=== PATIENT | female | born 1950 | race Caucasian/White ===

== ENCOUNTER → 2016-10-24 | Outpatient (CLI) | payer OTHER | END | disposition home or self-care (01) | LOC: HKI 10:31 | PROVIDERS: ATTEND Orthopaedic Surgery | DX: M25.551 Pain in right hip (principal); M16.11 Unilateral primary osteoarthritis, right hip ==

== ENCOUNTER → 2016-11-17 | Outpatient (CLI) | payer OTHER ==
--- NOTE | 2016-11-18 05:54 | HKNOTE ---
DATE OF SERVICE: 11/17/2016 MAIN COMPLAINT: Pain in the right hip. HISTORY OF MAIN COMPLAINT: Patient is a 66-year-old female who complains of pain in her right hip, which has been present for several years. The pain is in the groin and also over the trochanter. The pain radiates down the anterior thigh, at times to just above the knee. She can walk about a block before she has to stop because of the pain. Patient had a "gel" injection 6 months ago. This gave her relief for a few days. She saw Dr. Charles Stevens at the [facility] [place]. He advised her that she needed a hip replacement but the surgery was canceled when he stopped working at the [facility]. She subsequently saw Dr. George, who agreed with the findings and indicated a hip replacement is required. Dr. George is moving to [place] at the end of the month and the patient does not want to have her surgery so far away from home. She has tried various anti-inflammatories including diclofenac. These did not help very much. She describes the pain as being severe and is aggravated by walking, stair climbing. She sometimes get rest pain and night pain. She has tried using mineral ice and Aleve. She does not have any back pain or history of back problems. On a flat level surgeon, she walk "around the clock." She does not use a walking aid. She does work out using a stationary bike leaning backwards and she can also do the elliptical outdoor fitness trainer. She limps all the time. PRIOR CORTISONE INTAKE: None. ALCOHOL INTAKE: Eight glasses of wine a day. OTHER JOINT PROBLEMS: The left hip. BLOOD TESTS FOR ARTHRITIS: "I do not know." PRIOR INJURIES TO HIPS AND KNEES: None. 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 PAST MEDICAL HISTORY: Negative. PAST SURGICAL HISTORY: Negative. MEDICATIONS: Turmeric 740 mg every other day. Boswellia 500 mg every other day. SYSTEMS REVIEW: Entirely negative. HABITS: The patient does not smoke. She drinks a glass of wine daily. RESEARCH LABORATORY TECHNICIAN: Dr. Leland Ordaz, [address] [place] [address]. PHYSICAL EXAMINATION: GENERAL: The patient is an incredibly youthful 66-year-old female. She comes in with her . VITAL SIGNS: Height 5 foot 5. Weight 130 pounds. Blood pressure 145/70, temperature 98.4. GAIT: The patient has a marked antalgic gait. She walks without a walking aid. HIPS: Right hip examination: A full range of motion except that external rotation is limited to 35 degrees. Marked pain in the right groin at limits of motion. Examination of the left hip: Minimal pain at the limits of motion, but external rotation is limited to 30 degrees. No pain. KNEES: Normal bilaterally. IMAGING: Plain x-rays of her pelvis and hips brought with her (recent) were reviewed, as well as the x-rays obtained at the [facility] [place]. Imaging brought on a disk from the [facility] [place] dated 07/29/2016, showed that the right hip shows severe osteoarthritis with complete joint space obliteration and [id number] contact. Subchondral sclerosis, peripheral osteophyte formation. The left hip seen on these images shows mild joint space narrowing. No osteonecrosis, no fractures. DIAGNOSES: Severe degenerative osteoarthritis of the right hip (symptomatic). Moderate degenerative osteoarthritis of the left hip and (nonsymptomatic). MANAGEMENT: Patient is advised that I certainly agree with the 2 previous doctors who saw her that she will need to have a hip replacement operation. The surgery and some of the major possible complications were discussed with her and her in a fair amount of detail. 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 Straight leg raising bilaterally is to 105 degrees. All other joints appear to be hyperflexible. The patient is advised that this could present a problem with the surgery because someone with this degree of flexibility could easily dislocate the hip postoperatively. She was given information about the restrictions that this will place on her because if the hip dislocates she will have a very bad set back. Patient would like to schedule her hip surgery for the near future. She was referred to my website, [employer]. She was given a copy of my booklet on hip arthritis and hip replacement surgery. Dictated By: Alek Peres MD /[email or web address]/kaylee /Document#: [id number]
== END | disposition home or self-care (01) ==
LOC: HKI 15:21
DX: M25.551 Pain in right hip (principal); M16.0 Bilateral primary osteoarthritis of hip
CPT/HCPCS: G0463

== ENCOUNTER → 2016-12-06 | Outpatient (CLI) | payer OTHER ==
--- NOTE | 2017-01-11 04:10 | HKNOTE ---
DATE OF SERVICE: 12/06/2016 MAIN COMPLAINT: The patient comes in for preoperative evaluation. She is scheduled to have a right hip replacement on 12/08/2016. She has been cleared for surgery by Dr. Ordaz. Numerous questions were asked and answered. The postoperative course was discussed with her. She has not given any blood for a transfusion. She understands the risks associated with using hospital blood. She is agreeable to using hospital blood if needed. Dictated By: Alek Peres MD /[email or web address]/deanna /Document#: [id number]
== END | disposition home or self-care (01) ==
LOC: HKI 13:32
DX: Z01.818 Encounter for other preprocedural examination (principal)
CPT/HCPCS: G0463

== ENCOUNTER 2016-12-07 05:44 | Day surgery (SDC) | payer OTHER ==
[2016-12-06 11:52] VITALS: BMI 21.6
[~2016-12-07] VITALS: Ht 165.1 cm; Wt 59.7 kg
[2016-12-07 05:47] VITALS: Ht 165.1 cm; Wt 59.7 kg
[2016-12-07 05:54] VITALS: BP 141/74; PULSE 58; RESP 18
[2016-12-07] MEDS ORDERED: DEXAMETHASONE 4 MG/ML 1 ML INJ IV ONE (06:00)
[2016-12-07] MEDS ORDERED: LACTATED RINGER'S 1,000 ML IV* SCH (06:00)
[2016-12-07] MEDS ORDERED: TRANEXAMIC ACID IVPB ONE (06:00)
[2016-12-07] MEDS ORDERED: LANSOPRAZOLE 30 MG CAP PO ONE (06:00)
[2016-12-07] MEDS ORDERED: CELECOXIB 200 MG CAP PO ONE (06:00)
[2016-12-07] MEDS ORDERED: SOD CHLORIDE 0.9% IVPB ONE (06:00)
[2016-12-07] MEDS ORDERED: ACETAMINOPHEN 1000MG/100ML IV 100 ML IVPB ONE (06:00)
[2016-12-07] MEDS ORDERED: VANCOMYCIN 1 GM (PMX) 250 ML IVPB ONE (06:00)
[2016-12-07] MEDS ORDERED: oxyCODONE (CR) 10 MG TAB [oxyCONTIN] PO ONE (06:00)
[2016-12-07] MEDS ORDERED: ONDANSETRON 4 MG INJ IV ONE (06:00)
[2016-12-07] MEDS ORDERED: SOD CHLORIDE 0.9% IRR SCH ×2 (07:30)
[2016-12-07] MEDS ORDERED: HIP PAIN COCKTAIL VANCO INJ SCH ×7 (07:30)
[2016-12-07] MEDS ORDERED: TRANEXAMIC ACID IRR SCH ×2 (07:30)
== END 2016-12-07 06:37 | disposition home or self-care (01) ==
LOC: REC 05:44 → UNDOADMIN 05:44 → SDS 05:44 → UNDODISIN 06:37 → SDS 06:37 → EDSTATUS 07:30
DX: M16.11 Unilateral primary osteoarthritis, right hip (principal); Z53.9 Procedure and treatment not carried out, unspecified reason
CPT/HCPCS: 86850; 86900; 86901; 86920; J0131; J0171; J0735; J1100; J1885; J2274; J2405; J2795; J3370; J7120

== ENCOUNTER 2016-12-20 05:33 | Inpatient (IN) | payer OTHER ==
[~2016-12-20] VITALS: Ht 165.1 cm; Wt 59.2 kg
[2016-12-20] VITALS (21 sets, daily range): BP systolic 94–149; BP diastolic 20–66; PULSE 46–72; RESP 12–20; Ht 165.1 cm; Wt 59.2 kg
[2016-12-20] MEDS: HIP PAIN COCKTAIL VANCO INJ SCH ×14 (05:30→08:51)
[2016-12-20] MEDS ORDERED: TRANEXAMIC ACID IVPB ONE (06:00)
[2016-12-20] MEDS ORDERED: CELECOXIB 200 MG CAP PO ONE (06:00)
[2016-12-20] MEDS ORDERED: ONDANSETRON 4 MG INJ IV ONE (06:00)
[2016-12-20] MEDS ORDERED: DEXAMETHASONE 4 MG/ML 1 ML INJ IV ONE (06:00)
[2016-12-20] MEDS ORDERED: oxyCODONE (CR) 10 MG TAB [oxyCONTIN] PO ONE (06:00)
[2016-12-20] MEDS ORDERED: SOD CHLORIDE 0.9% IVPB ONE (06:00)
[2016-12-20] MEDS ORDERED: ACETAMINOPHEN 1000MG/100ML IV 100 ML IVPB ONE (06:00)
[2016-12-20] MEDS ORDERED: LANSOPRAZOLE 30 MG CAP PO ONE (06:00)
[2016-12-20] MEDS ORDERED: SOD CHLORIDE 0.9% IRR SCH ×2 (06:00)
[2016-12-20] MEDS ORDERED: VANCOMYCIN 1 GM (PMX) 250 ML IVPB ONE (06:00)
[2016-12-20] MEDS ORDERED: TRANEXAMIC ACID IRR SCH ×2 (06:00)
[2016-12-20] MEDS ORDERED: LACTATED RINGER'S 1,000 ML IV* SCH (06:00)
[2016-12-20] MEDS ORDERED: LABETALOL HCL 20MG INJ IV PRN (06:30)
[2016-12-20] MEDS ORDERED: OXYCODONE/ACETAMINOPHEN (5/325) TAB PO PRN ×2 (06:30)
[2016-12-20] MEDS ORDERED: morphine (1 MG/ML) 10ML SYRINGE IV PRN ×3 (06:30)
[2016-12-20] MEDS ORDERED: HYDROmorphONE (0.2 MG/ML) 10ML SYG IV PRN ×3 (06:30)
[2016-12-20] MEDS ORDERED: hydrALAzine 20 MG INJ IV PRN (06:30)
[2016-12-20] MEDS ORDERED: MIDAZOLAM 1 MG/ML 2 ML INJ IV PRN (06:30)
[2016-12-20] MEDS ORDERED: ONDANSETRON 4 MG INJ IV PRN (06:30)
[2016-12-20] MEDS ORDERED: MEPERIDINE 25 MG INJ IV PRN (06:30)
[2016-12-20] MEDS ORDERED: EPHEDrine SULFATE 50 MG/5 ML SYG IV PRN (06:30)
[2016-12-20] MEDS ORDERED: ATROPINE 1 MG/10 ML SYRINGE IV PRN (06:30)
[2016-12-20] MEDS ORDERED: FENTAnyl 50 MCG/ML VIAL IV PRN ×2 (06:30)
[2016-12-20] MEDS ORDERED: DIPHENHYDRAMINE 50 MG INJ IV PRN (06:30)
[2016-12-20] MEDS ORDERED: LIDOCAINE 2% (SDV) 5 ML INJ ONE (06:31)
[2016-12-20] MEDS ORDERED: ROCURONIUM 50 MG INJ ONE (06:31)
[2016-12-20] MEDS ORDERED: PROPOFOL 20 ML ONE (06:31)
[2016-12-20] MEDS ORDERED: FENTAnyl 50 MCG/ML VIAL ONE (06:31)
[2016-12-20] MEDS ORDERED: NEOSTIGMINE 3 MG/3 ML SYRINGE ONE (06:31)
[2016-12-20] MEDS ORDERED: MIDAZOLAM 1 MG/ML 2 ML INJ ONE (06:31)
[2016-12-20] MEDS ORDERED: GLYCOPYRROLATE 0.4 MG INJ ONE (06:31)
[2016-12-20] MEDS ORDERED: DEXAMETHASONE 4 MG/ML 1 ML INJ ONE (06:32)
[2016-12-20] MEDS ORDERED: LIDOCAINE 2%/EPI 30 ML INJ ONE (06:32)
[2016-12-20] MEDS ORDERED: ONDANSETRON 4 MG INJ ONE (06:43)
--- NOTE | 2016-12-20 06:48 | HPN ---
Date/Time of Note Date/Time of Note DATE: 12/20/16 TIME: 06:47 Interval H&P Admission Note Pt. seen H&P reviewed: No system changes NUPUR SIERRA PA-C Dec 20, 2016 06:48
[2016-12-20] MEDS ORDERED: VANCOMYCIN 1 GM INJ ONE (06:54)
[2016-12-20] MEDS ORDERED: POLYMYXIN B 500000 UNIT INJ ONE (06:54)
[2016-12-20] MEDS ORDERED: ROPIVACAINE 0.2% 100 ML ONE (06:55)
[2016-12-20] MEDS ORDERED: GELATIN SIZE 100 SPONGE ONE (07:01)
[2016-12-20] MEDS ORDERED: HEPARIN 1000 UNITS/ML 10 ML INJ ONE (07:01)
[2016-12-20] MEDS ORDERED: hydrALAzine 20 MG INJ ONE (07:50)
[2016-12-20] MEDS ORDERED: SUGAMMADEX SODIUM 200 MG/2 ML VIAL IV ONE (08:48)
[2016-12-20] MEDS ORDERED: BACITRACIN 50000 UNITS INJ IRR ONE (08:50)
[2016-12-20] MEDS ORDERED: ROPIVACAINE 0.2% 100ML BAG INJ ONE (08:51)
[2016-12-20] MEDS ORDERED: PROPOFOL 100 ML ONE (09:42)
--- NOTE | 2016-12-20 11:49 | PDOCDIS ---
Discharge Instructions DIAGNOSIS Discharge Diagnosis Status post right total hip arthroplasty via anterior route CONDITION Patient Condition: Stable HOME CARE INSTRUCTIONS: Diet Instructions: Regular ACTIVITY: Activity Restrictions: Slowly Increase Activity Rest between Activity Avoid heavy lifting No Sexual Activity Do not Drive Do not operate Machinery Do not operate Power Tool Avoid Heavy Housework Keep Limb Elevated (With ice modalities at rest.) Weight Bearing (Using front wheeled walker) Bathing Restrictions: Shower (Applied Tegaderm with pad prior to shower. After shower make sure the area is dry before removing. Repeat the steps each day until erika are removed 10 days postoperatively.) FOLLOW UP/APPOINTMENTS Follow-up Plan 01/10/2017 at 10:15 AM. NUPUR SIERRA PA-C Dec 20, 2016 11:49
--- NOTE | 2016-12-20 11:53 | SIPON ---
Date/Time of Note Date/Time of Note DATE: 12/20/16 TIME: 11:50 Operative Report Preoperative Diagnosis Severe degen right hip Postoperative Diagnosis same Operation/Procedure Performed Right THR Surgeon: VALDEZ APONTE MD physician assistant surgery: NUPUR SIERRA PA-C Anesthesia Type: general, epidural Transfusion Required: no Specimens Bone Complications: no VALDEZ APONTE MD Dec 20, 2016 11:52
[2016-12-20] MEDS ORDERED: NALOXONE (0.4 MG/ML) INJ IV PRN (12:00)
[2016-12-20] MEDS ORDERED: MAGNESIUM HYDROXIDE 30ML CUP PO PRN (12:00)
[2016-12-20] MEDS ORDERED: oxyCODONE 5 MG TAB PO PRN ×2 (12:00)
[2016-12-20] MEDS ORDERED: DIPHENHYDRAMINE 50 MG INJ IM PRN (12:00)
[2016-12-20] MEDS ORDERED: ZOLPIDEM 5 MG TAB PO PRN (12:00)
[2016-12-20] MEDS ORDERED: NA PHOSPHATE/BIPHOS 133 ML ENEMA PR PRN (12:00)
[2016-12-20] MEDS ORDERED: BISACODYL 10 MG SUPP PR PRN (12:00)
[2016-12-20] MEDS ORDERED: HYDROmorphONE 0.2 MG/ML PCA IV PRN (12:00)
[2016-12-20] MEDS ORDERED: ASPIRIN (EC) 325 MG TAB PO ONE (12:00)
[2016-12-20] MEDS ORDERED: BETHANECHOL 25 MG TAB PO PRN (12:00)
[2016-12-20] MEDS ORDERED: MEPERIDINE 10 MG/ML 30 ML PCA IV PRN (12:00)
[2016-12-20] MEDS ORDERED: SENNA/DOCUSATE NA (8.6MG/50MG) TAB PO PRN (12:00)
[2016-12-20] MEDS ORDERED: DOCUSATE SODIUM 100 MG CAP PO ONE ×2 (12:00→12:16)
[2016-12-20] MEDS ORDERED: NACL 0.9% 3 ML SYG IV SCH (12:00)
[2016-12-20] MEDS: ACETAMINOPHEN 1000MG/100ML IV 100 ML IVPB SCH ×2 (12:20→20:05)
[2016-12-20] MEDS: CEFAZOLIN 1 GM/50 ML (PMX) 50 ML IVPB SCH ×2 (12:20→20:31)
[2016-12-20] MEDS: ONDANSETRON 4 MG INJ IV SCH ×2 (12:21→17:06)
[2016-12-20] MEDS: DEXTROSE 5%-LR 1,000 ML IV SCH (12:48)
--- NOTE | 2016-12-20 13:38 | RADRPT ---
PROCEDURE: Right hip series CLINICAL INDICATION: Right hip arthroplasty TECHNIQUE: Single AP view of the right hip is submitted COMPARISON: None FINDINGS: There has been recent right hip arthroplasty with anatomic alignment. No evidence of fractures or d islocation.. Postsurgical changes with skin erika, soft tissue drain and soft tissue gas are prese nt. Visualized portions of the pelvis are intact. IMPRESSION: Recent right hip arthroplasty. RPTAT: HJPL .Jeyson Storey MD, MD Date Time Electronically viewed and signed by .Jeyson Storey MD, on 12/20/2016 13:38 .L/
--- NOTE | 2016-12-20 13:39 | RADRPT ---
PROCEDURE: Fluoroscopy CLINICAL INDICATION: Right hip arthroplasty TECHNIQUE: 0.9 minutes fluoroscopic time utilized by Dr. Peres for procedure. 5 images/sequences of are submitted. COMPARISON: None FINDINGS: Right hip arthroplasty in progress is demonstrated. IMPRESSION: Fluoroscopy utilized by Dr. Peres for right hip arthroplasty Please see procedural report for complete details. RPTAT: HJPL .Jeyson Storey MD, Date Time Electronically viewed and signed by .Jeyson Storey MD, on 12/20/2016 13:38 .L/
--- NOTE | 2016-12-20 14:29 | OPR ---
DATE OF OPERATION: 12/20/2016 PREOPERATIVE DIAGNOSIS: Severe degenerative osteoarthritis of the right hip. POSTOPERATIVE DIAGNOSIS: Severe degenerative osteoarthritis of the right hip. OPERATION PERFORMED: Right total hip replacement by the anterior route. Computer-assisted surgery using the [employer] digital imaging computer. FINDINGS AT SURGERY: The patient was found to have exceedingly severe degenerative osteoarthritis of the right hip. The socket is very shallow. The femoral head had no normal-appearing articular cartilage. The patient's bone quality was soft for a female of her age. JUSTIFICATION FOR SURGERY: Patient has end stage osteoarthritis of the right hip. There can be no scientific expectation that any further conservative measures would give this patient any relief from her incapacitating pain. DESCRIPTION OF PROCEDURE: The patient was given intravenous antibiotics approximately 1 hour prior to surgery. An epidural anesthetic was initiated in the preanesthesia area. The patient was then moved to the operating room and transferred to a Manor table. General anesthesia was induced with intubation and full muscle paralysis. Plain and digital x-rays were obtained of the pelvis and the operative hip and stored in the computer. Measurements were made on the operative hip to determine the degree of leg length and offset. The intent was to use the operative hip as the basic template for restoring the geometry of the operative hip (i.e., the opposite hip was not used as the template). On the pelvic x-ray, the correct orientation of the pelvis for surgery was determined. Note that the [employer] computer was used throughout for making all leg length and angular measurements. The operative thigh, leg and lower abdomen were prepared and draped in the usual sterile fashion. An oblique incision was made over the lateral aspect of the right thigh. Incision commenced 3 cm distal and 3 cm posterior to the anterior superior iliac spine. The total length of the incision was approximately 100 mm. The incision was deepened through the subcutaneous fat to expose the fascia over the tensor muscle. The fascia was opened to expose the muscle. Bleeding points were cauterized throughout by diathermic coagulation. The fascia over the tensor was incised by blunt and digital resection. The interval was found between the tensor muscle and the anterior capsule as well as the rectus muscle. Superior and inferior cobra retractors were now placed outside the capsule to expose the anterior surface of the capsule. A third cobra retractor was placed over the brim of the pelvis. The reflected head of rectus was first elevated with a Licona elevator. The anterior capsule was incised along the length of the intratrochanteric line with the hip externally rotated. The incision extended around the proximal femur to the lesser trochanter. The incision was now extended vertically to the edge of the acetabulum. The capsular incision was extended along the anteromedial extent of the anterior rim of the acetabulum. A cobra retractor was placed inside the capsule medially. The lateral aspect of the anterior capsule was incised and a second cobra retractor was placed inside the capsule around the superior femoral neck. Three turns of traction were placed on the operative leg. The femoral head was now freed from the acetabulum using a skid. The remaining superior and anterior capsule was incised and the femoral neck was then incised. A corkscrew was inserted into the femoral head from the anterior aspect of the femoral head. Using the corkscrew as a handle and using a skid, the hip was now completely dislocated. The hip was reduced. An osteotomy of the femoral neck was made at the location determined by preoperative templating. The femoral head was now removed. By suitable retraction, the acetabulum was exposed. Soft tissues around the folia removed. The acetabulum was enlarged and deepened to 51 mm. The last acetabular reamings were inserted under fluoroscopic control and the correct orientation of the socket and if the reaming were determined by the [employer] computer and direct x-ray visualization. The acetabular component was now installed with an orientation of 45 degrees of abduction and 20 degrees of anteversion. The [employer] computer was used for making these measurements. Note: We intended to an abduction angle of 40 to 43 degrees but by the time we were done and had a screw inserted into the acetabulum the angle had changed slightly. For this reason a socket with a 10 degree lip set superiorly to offset the high angle. The proximal femur was now exposed by hyperextending and adducting the hip joint. A retractor was placed posterior to the femoral neck so as to retract the proximal femur laterally. A hook was then placed around the proximal femur deep to the tensor muscle and as proximal as possible. The hook was attached to the table dagoberto and the femur was elevated as high as we could go without force being applied to the femur. The superior and proximal femoral capsules were now incised. The cobra retractor was placed behind the posterior rim of the acetabulum. A Steinmann pin was driven into the pelvis superior to the acetabulum to retract the soft tissues. A third cobra was placed over the rim of the acetabulum and the fourth cobra was placed along the medial aspect of the acetabulum. This allowed further mobilization of the proximal femur. A canal finder was used to find the canal. The proximal femur is now broached starting with the smallest broach and progressively increasing until we felt we could go no further. At this point, the size 11 broach was left in place and the hip was reduced. X-rays were taken and these x-rays showed that we could broach up 1 more size. The hip was reduced with the shortest femoral head and neck assembly and measurements were made to determine what neck lengths and offset changes were still needed. The hip was dislocated. The next size broach 12 was now installed. This broach was found to be completely stable. The hip was reduced using the plus 5 mm femoral head and neck assembly and the broach. Measurements indicated that the leg lengths had been increased by 2 mm. The offset was unchanged. This was felt to be an appropriate combination. The trial components were placed and the retractor was placed anterior to the acetabulum and the hip was hyperextended using the Manor table until the spar touched the floor. This showed that the hip was totally stable in the anterior aspect of the socket. The leg was not detached from the Manor table and the knee was put through a full functional range of motion and found to be stable with a full functional range. As trial components were removed, the permanent plastic acetabular component was installed. This was followed by installing the permanent femoral component. The table was now returned to a neutral position and the hip was dislocated. The wound was frequently irrigated throughout the procedure with normal saline containing antibiotics using pulsatile lavage. The permanent femoral component was installed, it fit perfectly and appeared to be completely stable. The permanent femoral head was installed and the hip was reduced. Superficial and deep Hemovac drains were placed. Soft tissues around the hip were injected with a mixture of Naropin, Toradol, morphine and clonidine for pain management. The deep tissues were now closed using interrupted Vicryl. The subcutaneous tissues were closed using a Quill type stitch. The skin was closed using erika. The usual sterile dressings were applied and an abduction pillow was placed between the patient's legs before transferring her to a gurney. The patient returned to the recovery room in stable condition. There were no problems or complications throughout this operation as far as is known. Although multiple x-rays were taken in the operating room and saved, the permanent x-ray record was obtained in the recovery room to be sure that the hip did not dislocate in transfer. IMPLANT COMPONENT INFORMATION: Femoral component: Corail ESSENCE size 12. Acetabular component: Size 52 mm [place] with Gription with a single screw set superiorly. Femoral head size: 36 mm. Femoral neck size: Plus 5 mm. 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 Leg length: Increased 2 mm. Offset: Unchanged. Acetabular liner: Plus 4 mm liner with 10 degree lip set superiorly. Reinfusion was used. The total blood loss was approximately 400 mL and more 150 cc were recovered and reinfused as packed cells. Dictated By: Alek Peres MD /kelvin/efra /Document#: [id number]
[2016-12-20] MEDS ORDERED: CEPASTAT LOZENGE MT PRN (15:00)
[2016-12-20] MEDS ORDERED: TRANEXAMIC ACID 590 MG in SOD CHLORIDE 0.9% 100 ML IVPB ONE ×2 (15:00→18:00)
[2016-12-20 19:39] LABS: ADD UMIC NO; UR ASCORBIC ACID NEGATIVE (NEGATIVE); UR BILIRUBIN (Dip) NEGATIVE (NEGATIVE); UR BLOOD (Dip) NEGATIVE (NEGATIVE); UR CLARITY CLEAR (CLEAR); UR COLOR STRAW (YELLOW); UR GLUCOSE (Dip) NEGATIVE (NEGATIVE); UR KETONES (Dip) NEGATIVE (NEGATIVE); UR LEUKOCYTE ESTERASE (Dip) NEGATIVE Leu/ul (NEGATIVE); UR NITRITE (Dip) NEGATIVE (NEGATIVE); UR SPECIFIC GRAVITY (Dip) 1.012 (1.003-1.030); UR TOTAL PROTEIN (Dip) NEGATIVE (NEGATIVE); UR UROBILINOGEN (Dip) NEGATIVE (NEGATIVE)
[2016-12-21] MEDS: oxyCODONE 5 MG TAB PO PRN ×3 (01:02→21:59)
[2016-12-21] MEDS: ONDANSETRON 4 MG INJ IV SCH ×2 (01:02→06:00)
[2016-12-21] MEDS: DEXTROSE 5%-LR 1,000 ML IV SCH ×2 (01:03→12:49)
[2016-12-21 02:05] VITALS: BP 107/52; RESP 18
[2016-12-21] MEDS: CEFAZOLIN 1 GM/50 ML (PMX) 50 ML IVPB SCH (03:55)
[2016-12-21] MEDS: ACETAMINOPHEN 1000MG/100ML IV 100 ML IVPB SCH ×3 (04:44→20:09)
[2016-12-21 05:30] VITALS: BP 119/57; PULSE 55; RESP 18
--- NOTE | 2016-12-21 05:39 | CONS ---
Date/Time of Note Date/Time of Note DATE: 12/21/16 TIME: 05:33 Assessment/Plan Assessment/Plan Additional Assessment/Plan ASSESSMENT 66 yo male with hx of Severe degenerative osteoarthritis of the right hip s/p Right total hip replacement. PLAN Cont pain mgmt with adjustment as needed Check am lab. will include TSH given bradycardia in low 50s Check EKG DVT ppx per Ortho Consultation Date/Type/Reason Admit Date/Time Dec 20, 2016 at 05:33 Hx of Present Illness This is a 66 yo male with hx of Severe degenerative osteoarthritis of the right hip who just underwent Right total hip replacement. Consult was placed for medical mgmt. Patient denied PMH. Currently, he is feeling well. Except intermittent pain related to surgery, he does not have any complaints. Denied Chest pain, SOB, fever/chills. Social History Smoking Status: Never smoker Exam/Review of Systems Vital Signs Vitals Vital Signs Date Time Temp Pulse Resp B/P Pulse Ox O2 Delivery O2 Flow Rate FiO2 12/21/16 02:05 97.6 51 18 107/52 99 12/20/16 16:15 Room Air Intake and Output 12/20/16 12/20/16 12/21/16 15:00 23:00 07:00 Intake Total 3300 ml 1521.8 ml 590 ml Output Total 640 ml 1400 ml Balance 2660 ml 121.8 ml 590 ml Exam Constitutional: alert, oriented, well developed Head: atraumatic, normocephalic Eyes: EOMI, PERRL Respiratory: clear to auscultation, normal air movement Cardiovascular: nl pulses, regular rate and rhythm Gastrointestinal: non-tender, soft Extremities: other (right lower ext covered) Results Results 24 hrs Laboratory Tests Test 12/20/16 18:10 Urine Color STRAW Urine Clarity CLEAR Urine pH 6.0 Urine Specific [place] 1.012 Urine Ketones NEGATIVE Urine Nitrite NEGATIVE Urine Bilirubin NEGATIVE Urine Urobilinogen NEGATIVE Urine Leukocyte Esterase NEGATIVE Urine Hemoglobin NEGATIVE Urine Glucose NEGATIVE Urine Total Protein NEGATIVE Medications Medications Current Medications Sodium Chloride 50 ml/Tranexamic Acid 1180 mg INTRA-OP IRR ; Start 12/20/16 at 06:00 Dextrose/Lactated Ringer's (D5-Lr) 1,000 ml @ 80 mls/hr [id number] IV Last administered on 12/21/16t 01:03; Admin Dose 80 MLS/HR; Start 12/20/16 at 11:49 Hydromorphone HCl (Dilaudid GEOLOGICAL SURVEY FIELD ASSISTANT) Q4PCA PRN IV SEVERE PAIN 8-10; Start at 12:00; Stop 12/21/16 at 11:59 Meperidine HCl (Demerol GEOLOGICAL SURVEY FIELD ASSISTANT) Q4PCA PRN IV SEVERE PAIN 8-10; Start 12/20/16 at 12:00; Stop 12/21/16 at 11:59 Oxycodone HCl (Roxicodone) 20 mg Q3H PRN PO PAIN LEVEL 8-10; Start 12/20/16 at 12:00 Oxycodone HCl (Roxicodone) 10 mg Q3H PRN PO PAIN LEVEL 4-7; Start 12/20/16 at 12:00 Oxycodone HCl 5 mg 5 mg Q3H PRN PO PAIN LEVEL 1-3 Last administered on 01:02; Admin Dose 5 MG; Start 12/20/16 at 12:00 Acetaminophen (Ofirmev 1000mg/ 100ml Iv) 100 ml @ 400 mls/hr Q8H IVPB Last administered on 12/21/16 04:44; Admin Dose 400 MLS/HR; Start 12/20/16 at 12:00 ; Stop 12/22/16 at 04:14 Zolpidem Tartrate (Ambien) 5 mg HS PRN PO INSOMNIA; Start 12/20/16 at 12:00 Ondansetron HCl (Zofran Inj) 4 mg Q6H IV Last administered on 12/21/16 01:02; Admin Dose 4 MG; Start 12/20/16 at 12:00; Stop 12/21/16 at 06:01 Aspirin (Ecotrin) 325 mg BID PO ; Start 12/21/16 at 09:00 Celecoxib (Celebrex) 200 mg BID PO ; Start 12/21/16 at 09:00 Dexamethasone (Decadron) 4 mg DAILY@07 IV ; Start 12/21/16 at 07:00; Stop at 06:59 Pantoprazole (Protonix Tab) 40 mg DAILY@06 PO ; Start 12/21/16 at 06:00 Docusate Sodium/ Ferrous Fumarate (Parish-Sequels) 1 tab BID PO ; Start 12/21/16 at 09:00 Docusate Sodium (Colace) 200 mg BID PO ; Start 12/21/16 at 09:00; Stop 12/23/16 at 21:01 Simethicone (Mylicon) 80 mg TID PRN PO DISTENSION/GAS/BLOATING; Start 12/20/16 at 12:00 Senna/Docusate Sodium (Senokot-S) 2 tab BID PRN PO CONSTIPATION; Start at 12:00 Magnesium Hydroxide (Milk Of Mag) 30 ml HS PRN PO CONSTIPATION; Start 12/20/16 at 12:00 Bisacodyl (Dulcolax Supp) 10 mg DAILY PRN [place] CONSTIPATION; Start 12/20/16 at 12 :00 Sodium Biphosphate/ Sodium Phosphate (Fleet Enema) 133 ml DAILY PRN [place] CONSTIPATION; Start 12/20/16 at 12:00 Diphenhydramine HCl (Benadryl) 25 mg Q4H PRN IM ITCHING OR RASH; Start at 12:00 Ketorolac Tromethamine (Toradol) 15 mg DAILY@06 PRN INJ ADMINSTER BY SURGEON ONLY; Start 12/21/16 at 06:00; Stop 12/25/16 at 05:59 Bupivacaine HCl/ Epinephrine Bitart (Marcaine 0.25%/ Epi (Sdv) 30 ml) 20 ml DAILY@06 PRN INJ ADMINSTER BY SURGEON ONLY; Start 12/21/16 at 06:00; Stop 12/25 at 05:59 Naloxone HCl (Narcan) 0.2 mg Q2M PRN IV DECREASED REPIRATORY RATE; Start at 12:00 Phenol (Cepastat Lozenge) 1 lozenge Q1H PRN MT SORE THROAT Last administered on 12/20/16t 17:06; Admin Dose 1 LOZENGE; Start 12/20/16 at 15:00 MANUEL LOPEZ MD Dec 21, 2016 05:39
[2016-12-21] MEDS ORDERED: BUPIVACAINE 0.25%/EPI (SDV) 30 ML INJ INJ PRN (06:00)
[2016-12-21] MEDS ORDERED: KETOROLAC 15 MG INJ INJ PRN (06:00)
[2016-12-21] MEDS: DEXAMETHASONE 4 MG/ML 1 ML INJ IV SCH (06:15)
[2016-12-21] MEDS: PANTOPRAZOLE (EC) 40 MG TAB PO SCH (06:15)
[2016-12-21] MEDS ORDERED: BUPIVACAINE 0.25% (MPF) 30 ML INJ INJ ONE (07:10)
--- NOTE | 2016-12-21 07:18 | PN ---
Date/Time of Note Date/Time of Note DATE: 12/21/16 TIME: 07:16 Assessment/Plan VTE Prophylaxis VTE Prophylaxis Intervention: ambulation, SCD's, other (Aspirin 325 mg twice daily) Lines/Catheters IV Catheter Type (from Nrs): Peripheral IV Piedra in Place (from Nrsg): No Assessment/Plan Assessment/Plan -Hemovac Removed Today. 440 cc output -Pain Meds as needed -Dress change performed today -OOB with PT -ASA/SCDs for DVT Prophylaxis -Continue monitoring with Internal Medicine -Patient Stable Subjective 24 Hr Interval Summary 66-year-old female postop day 1 status post right total hip arthroplasty via anterior route. Denies any pain complaints. Patient was up and 1 with therapy yesterday. Patient was walking throughout the hallways. Denies any chest pain/ tightness/shortness of breath. Denies any calf pain. Patient is doing well at this time. Exam/Review of Systems Vital Signs Vitals Vital Signs Date Time Temp Pulse Resp B/P Pulse Ox O2 Delivery O2 Flow Rate FiO2 12/21/16 05:30 55 18 119/57 98 Room Air 12/21/16 02:05 97.6 Intake and Output 12/20/16 12/20/16 12/21/16 15:00 23:00 07:00 Intake Total 3300 ml 1521.8 ml 1640 ml Output Total 640 ml 1400 ml 1050 ml Balance 2660 ml 121.8 ml 590 ml Exam Free Text/Dictation -Hemovac: Intact 440 cc output. -Pain Cocktail Drains: Intact -Incision: Clean, Dry and Intact mild erythema surrounding the wound. -Thigh soft -5/5 Quadriceps, Tibialis Anterior, EHL Gastrocnemius/Soleus and Peroneals -Normal Sensation -Palpable DP/PT, Capillary Refill <2 secs -No Distal Edema -Negative Elder Sign/No calf pain -Toes Freely Movable NUPUR SIERRA PA-C Dec 21, 2016 07:18
[2016-12-21 07:29] VITALS: BP 123/56; RESP 18
[2016-12-21 07:37] LABS: EOSINOPHILS % 0.3 % (0.0-7.0); HEMOGLOBIN 9.3 g/dl (12.0-16.0); LYMPHOCYTES # 1.5 10^3/ul (0.8-2.9); LYMPHOCYTES % 22.4 % (15.0-51.0); MEAN CORPUSCULAR HEMOGLOBIN 32.2 pg (29.0-33.0); MEAN CORPUSCULAR HGB CONC 33.2 g/dl (32.0-37.0); MEAN CORPUSCULAR VOLUME 96.9 fl (82.0-101.0); MEAN PLATELET VOLUME 11.1 fl (7.4-10.4); MONOCYTE # 0.7 10^3/ul (0.3-0.9); PLATELET COUNT 136 10^3/UL (140-415); RED BLOOD COUNT 2.89 10^6/ul (4.20-5.40); WHITE BLOOD COUNT 6.7 10^3/ul (4.8-10.8)
[2016-12-21 08:00] LABS: ALBUMIN 2.9 g/dl (3.3-4.9); ALBUMIN/GLOBULIN RATIO 1.31; BILIRUBIN,INDIRECT 0.4 mg/dl (0-1.1); BILIRUBIN,TOTAL 0.4 mg/dl (0.2-1.3); CALCIUM 8.2 mg/dl (8.4-10.2); CREATININE 0.7 mg/dl (0.44-1.00); TOTAL PROTEIN 5.1 g/dl (6.1-8.1)
[2016-12-21] MEDS: FERROUS FUMARATE (SR) TAB PO SCH ×2 (08:11→20:09)
[2016-12-21] MEDS: CELECOXIB 200 MG CAP PO SCH ×2 (08:11→20:09)
[2016-12-21] MEDS: DOCUSATE SODIUM 100 MG CAP PO SCH ×2 (08:12→20:09)
[2016-12-21] MEDS: ASPIRIN (EC) 325 MG TAB PO SCH ×2 (08:18→20:09)
[2016-12-21 08:26] LABS: THYROID STIMULATING HORMONE 1.26 MIU/L (0.465-4.680)
[2016-12-21 19:39] VITALS: BP 128/58; RESP 19
[2016-12-22] MEDS: DEXTROSE 5%-LR 1,000 ML IV SCH ×2 (01:19→13:49)
[2016-12-22 02:01] VITALS: BP 123/59; RESP 22
[2016-12-22] MEDS: oxyCODONE 5 MG TAB PO PRN ×3 (04:58→17:31)
[2016-12-22] MEDS: ACETAMINOPHEN 1000MG/100ML IV 100 ML IVPB SCH (04:59)
[2016-12-22] MEDS ORDERED: BUPIVACAINE 0.25% (MPF) 30 ML INJ INJ PRN (06:00)
[2016-12-22] MEDS: DEXAMETHASONE 4 MG/ML 1 ML INJ IV SCH (06:08)
[2016-12-22] MEDS: PANTOPRAZOLE (EC) 40 MG TAB PO SCH (06:08)
--- NOTE | 2016-12-22 07:13 | PN ---
Date/Time of Note Date/Time of Note DATE: 12/22/16 TIME: 07:12 Assessment/Plan VTE Prophylaxis VTE Prophylaxis Intervention: ambulation, SCD's, other (Aspirin 325 mg twice daily) Lines/Catheters IV Catheter Type (from Nrsg): Saline Lock Piedra in Place (from Nrsg): No Assessment/Plan Assessment/Plan -Pain Cocktail Given and catheter removed -Pain Meds as needed -Dress change performed today -ASA for DVT Prophylaxis x 6 weeks outpatient discussed. -Continue monitoring as outpatient on discharge -Follow-up at scheduled postop outpatient appointment or sooner if there is any issue. -Tegaderm dressings given with specific instructions to use as outpatient to keep wound dry until erika are moved around 10 days. -Hip precautions discussed -Patient Stable -Discharge to Home with home health Subjective 24 Hr Interval Summary 66-year-old female postop day 2 status post right total hip arthroplasty. No complaints overnight. Patient is up and walking throughout the hallways. She denies any chest pain/tightness, shortness of breath or calf pain. Patient would like to go home today. Constitutional: no complaints Pain Control: well controlled Exam/Review of Systems Vital Signs Vitals Vital Signs Date Time Temp Pulse Resp B/P Pulse Ox O2 Delivery O2 Flow Rate FiO2 12/22/16 02:01 98.7 56 22 123/59 100 12/21/16 05:30 Room Air Intake and Output 12/21/16 12/21/16 12/22/16 15:00 23:00 07:00 Intake Total 420 ml 1200 ml 100 ml Output Total 1300 ml Balance 420 ml -100 ml 100 ml Exam Free Text/Dictation -Hemovac: Removed -Pain Cocktail Drains: Intact -Incision: Clean, Dry and Intact without any redness or drainage -Thigh soft -5/5 Quadriceps, Tibialis Anterior, EHL Gastrocnemius/Soleus and Peroneals -Can flex up to 45. -Normal Sensation -Palpable DP/PT, Capillary Refill <2 secs -No Distal Edema -Negative Elder Sign/No calf pain -Toes Freely Movable Constitutional: alert, oriented, well developed Results Result Diagram: 12/21/16 0712/21/16 07 NUPUR SIERRA PA-C Dec 22, 2016 07:13
[2016-12-22 08:09] VITALS: BP 111/56; RESP 18
[2016-12-22] MEDS: ASPIRIN (EC) 325 MG TAB PO SCH (08:34)
[2016-12-22] MEDS: DOCUSATE SODIUM 100 MG CAP PO SCH (08:34)
[2016-12-22] MEDS: CELECOXIB 200 MG CAP PO SCH (08:34)
[2016-12-22] MEDS: FERROUS FUMARATE (SR) TAB PO SCH (08:34)
[2016-12-22 10:29] LABS: BASOPHILS % 0.1 % (0.0-2.0); EOSINOPHILS % 0.3 % (0.0-7.0); HEMATOCRIT 27.9 % (37.0-47.0); HEMOGLOBIN 9.2 g/dl (12.0-16.0); LYMPHOCYTES # 0.7 10^3/ul (0.8-2.9); LYMPHOCYTES % 8.8 % (15.0-51.0); MEAN CORPUSCULAR HEMOGLOBIN 32.2 pg (29.0-33.0); MEAN CORPUSCULAR VOLUME 97.6 fl (82.0-101.0); MEAN PLATELET VOLUME 11.2 fl (7.4-10.4); MONOCYTE # 0.6 10^3/ul (0.3-0.9); MONOCYTES % 7.8 % (0.0-11.0); NEUTROPHIL # 6.2 10^3/ul (1.6-7.5); NEUTROPHILS % 82.5 % (39.0-77.0); PLATELET COUNT 145 10^3/UL (140-415); RED BLOOD COUNT 2.86 10^6/ul (4.20-5.40); RED CELL DISTRIBUTION WIDTH 13.2 % (11.5-14.5); WHITE BLOOD COUNT 7.5 10^3/ul (4.8-10.8)
[2016-12-22 14:00] VITALS: BP 120/60; RESP 18
--- NOTE | 2016-12-23 08:21 | DS ---
Date/Time of Note Date/Time of Note DATE: 12/23/16 TIME: 08:18 Discharge Summary Admission/Discharge Info Admit Date/Time Dec 20, 2016 at 05:33 Discharge Date/Time Dec 22, 2016 at 19:30 Discharge Diagnosis Status post right total hip arthroplasty via anterior route Patient Condition: Stable Hospital Course On the day of admission, the patient underwent Right Total Hip Arthroplasty via anterior route Intraoperative complications: None Postoperative complications: None The patient was given prophylactic antibiotics and anticoagulants. On the day of surgery and first postoperative day patient was started on gait training and was taught usual restrictions following anterior hip replacement Suction drain removed on the first postoperative day and the dressings were changed. The wound was found to be clean and healing well. There was no sign of infection. Pain cocktail given. On the second postoperative day, patient continued with inpatient PT. Dressings were changed. Wound was found to be clean and healing well. No signs of infection. Pain cocktail given. On the day of discharge, the wound was clean and healing well; there was no sign of infection. The dressings were changed. Discharge Temperature: 98 degrees Discharge White Blood Cell Count: 7.5 Discharge Hemoglobin: 9.2 The patient was discharged home with home health. Arrangements were made for visiting nurses and home health/physical therapy. Tegaderm with pad also provided for patient. Instructions given on how to use to keep wound dry while showering. Patient may discontinue use of Tegaderm with pad after erika have been removed around 10 days postoperatively. The patient will be seen in office at scheduled postoperative evaluation date given on their preoperative exam. Should patient complain of any problems prior to scheduled postoperative evaluation date, they may call into outpatient clinic to determine if they need to be scheduled at sooner appointment to be seen immediately if needed. Discharge medications: As per medication reconciliation form Diet: Same as preadmission diet. This is Nupur Schmitz PA-C dictating discharge summary for Dr. Alek Peres. Home Meds No Active Prescriptions or Reported Meds Follow-up Plan 01/10/2017 at 10:15 AM. Primary Care Provider Leland Ordaz Pending Labs Laboratory Tests Test 12/22/16 10:09 White Blood Count 7.510^3/ul (4.8-10.8) Red Blood Count 2.8610^6/ul (4.20-5.40) Hemoglobin 9.2g/dl (12.0-16.0) Hematocrit 27.9% (37.0-47.0) Mean Corpuscular Volume 97.6fl (82.0-101.0) Mean Corpuscular Hemoglobin 32.2pg (29.0-33.0) Mean Corpuscular Hemoglobin Concent 33.0g/dl (32.0-37.0) Red Cell Distribution Width 13.2% (11.5-14.5) Platelet Count 60983^3/UL (140-415) Mean Platelet Volume 11.2fl (7.4-10.4) Neutrophils % 82.5% (39.0-77.0) Lymphocytes % 8.8% (15.0-51.0) Monocytes % 7.8% (0.0-11.0) Eosinophils % 0.3% (0.0-7.0) Basophils % 0.1% (0.0-2.0) Nucleated Red Blood Cells % 0.0/100WBC (0.0-0.0) Neutrophils # 6.210^3/ul (1.6-7.5) Lymphocytes # 0.710^3/ul (0.8-2.9) Monocytes # 0.610^3/ul (0.3-0.9) Eosinophils # 0.010^3/ul (0.0-0.5) Basophils # 0.010^3/ul (0.0-0.1) Nucleated Red Blood Cells # 0.010^3/ul (0.0-0.0) NUPUR SIERRA PA-C Dec 23, 2016 08:21
== END 2016-12-22 19:30 | disposition home health service (06) | DRG 470 ==
LOC: REC 05:33 → MS1 12:43
PROC: 0SR904A Replacement of Right Hip Joint with Ceramic on Polyethylene Synthetic Substitute, Uncemented, Open Approach (ICD-10-PCS; principal; 2016-12-20 07:30)
DX: M16.11 Unilateral primary osteoarthritis, right hip (principal)
CPT/HCPCS: 73500; 73530; 80053; 81003; 84443; 85025; 86850; 86900; 86901; 86920; 87070; 87086; 88304; 88311; 97110; 97116; 97162; 97167; 97530; C1713; C1776; J0131; J0171; J0360; J0690; J0735; J1100; J1644; J1885; J2250; J2274; J2405; J2710; J2795; J3010; J3370; J7120; J7121

== ENCOUNTER → 2017-01-05 | Outpatient (CLI) | payer OTHER ==
--- NOTE | 2017-01-05 10:16 | PN ---
Date/Time of Note Date/Time of Note DATE: 01/05/17 TIME: 10:11 Outpatient Progress Note Chief Complaint 2 weeks status post right total hip replacement HPI 66-year-old female presents today for follow-up status post right total hip replacement on 12/20/2016. Patient states that initially upon discharge, she was experiencing significant pain. Was taking [place] 10/325 but states that [place] provided significant nausea and was difficult for her. Spoke telephonically after discharge and recommended to cut tablet in half to 5 and if that is not successful then tramadol can be given. Patient states that 5 continue to give her nausea but she did not want to take tramadol as well. Currently, she states that her pain is well controlled and does not need pain medication. She has been walking independently and states that she has been feeling much better. Denies any chest pain/tightness or shortness of breath. Not using an assistive ambulatory device. Review of Systems Const: No Fever, no chills, no Fatigue, normal appetite, no diaphoresis. Resp: No SOB, no wheezing, no chest pain. CV: No chest pain, no palpitaions, no GONGORA. Physical Exam Blood pressure was 175/70, temperature is 98.5, pulse is 59, respiratory rate is 12, height is 5 foot 5 inches, weight is 129-1/2 pounds. General Appearance: well-developed, well-nourished, in no acute distress. Right hip: Surgical wound is clean dry and intact and healing well. No tenderness to palpation. Normal sensory examination to light touch throughout the right lower extremity. While lying supine, patient is able to perform a straight leg raise up to 30. No pain with range of motion. 5/5 strength on resistance with flexion and extension. 5/5 strength with abduction and adduction. Allergies Coded Allergies: No Known Allergy (Unverified , 12/20/16) Assessment/Plan Problems: (1) Status post right hip replacement -Wound healing well after staple removal. No signs of infection. -Continue ASA 325 mg twice daily for DVT prophylaxis until 6 weeks status post surgery. -Continue hip precautions until 6 weeks status post surgery -No signs of DVT. -Patient progressing well. -Follow-up at 6 week postop appointment. X-rays will be performed at 6 weeks postoperative appointment. -Patient made aware that they may follow-up sooner, should they experience any issues or complications as we will be glad to see them. Antibiotic card provided for patient. Patient made aware that dental prophylaxis will be necessary prior to any dental procedure for the remainder of their lifetime. Patient is aware that they must contact their dentist prior to any procedure to inform them of previous joint replacement with prosthesis implant so appropriate antibiotic may be prescribed to lower risk of joint infection status post surgery. Card will also serve as confirmation should patient be traveling and have to go through security such as at an airport. Medications Home Meds No Active Prescriptions or Reported Meds NUPUR SIERRA PA-C Jan 05, 2017 10:16
== END | disposition home or self-care (01) ==
LOC: HKI 09:34
DX: G89.18 Other acute postprocedural pain (principal); M25.551 Pain in right hip; Z96.641 Presence of right artificial hip joint

== ENCOUNTER → 2017-02-02 | Outpatient (CLI) | payer OTHER ==
--- NOTE | 2017-02-02 11:27 | PN ---
Date/Time of Note Date/Time of Note DATE: 02/02/17 TIME: 11:23 Outpatient Progress Note Chief Complaint 6 weeks status post right hip replacement HPI 66-year-old female presents today for 6 week postoperative appointment status post right total hip arthroplasty on 12/20/2016. Patient states that she is doing well. She states that after 2 days status post surgery she was no longer using assistive ambulatory device in regards to front wheeled walker. Patient does state that she has pain at night especially with increased activity throughout the day. She states that a half tablet of [place] 10/325 mg helps resolve her pain for up to 12 hours. 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 Patient is very pleased status post surgery as she feels that she is now returning back to her normal way of life. Review of Systems Const: No Fever, no chills, no Fatigue, normal appetite, no diaphoresis. Resp: No SOB, no wheezing, no chest pain. CV: No chest pain, no palpitaions, no GONGORA. Physical Exam Blood pressure is 160/70, temperature is 98, pulse is 47, respiratory rate is 12, height is 5 foot 5 inches, weight is 129-1/2 pounds. General Appearance: well-developed, well-nourished, in no acute distress. Right hip: Well-healed surgical scarring to the surgical wound. No tenderness to palpation. Normal sensory examination to light touch. While lying supine patient is able to lie with leg in full extension and flex up to 140 with no pain. Patient is able to abduct 0-25. Patient is able to adduct 10. No pain with range of motion. 5/5 strength on resistance. Imaging: X-ray of the Right hip performed on 02/01/2017 showing all components appearing well aligned, attached and integrated to the bone. No signs of any lucency between metal and bone. Allergies Coded Allergies: No Known Allergy (Unverified , 12/20/16) Assessment/Plan Problems: (1) Status post right hip replacement -Patient progressing well -Surgical wound continues to heal well. -No signs of infection or DVT on exam. -Antibiotic prophylaxis card given. -Patient may discontinue hip precautions at this time. Lengthy discussion had with patient however, it was explained that she should avoid ranges of motion, especially with her yoga classes, in regards to lunges, external rotation and positions of increased flexion and extension of the hip as this could create potential risks/danger for dislocation and she states understanding and compliance. -Follow-up 6 months status post surgery. Dental prophylaxis discussed in detail today. Patient given prophylaxis card with antibiotic options. Should patient have allergy to specific medication ( eg penicillin) alternative options are also provided on the card. Patient is aware that antibiotics should be taken prior to any procedures to prevent increased risk of infection to the joint. Patient is aware that this will be for the rest of their life. Patient states understanding and compliance. Medications Home Meds No Active Prescriptions or Reported Meds NUPUR SIERRA PA-C Feb 02, 2017 11:27
--- NOTE | 2017-02-02 13:45 | RADRPT ---
PROCEDURE: XR Right hip and pelvis. CLINICAL INDICATION: Right hip pain. Pelvic pain. Postop. TECHNIQUE: Two views. Frontal pelvis and no right hip. COMPARISON: 12/20/2016. FINDINGS: There is no fracture or dislocation. Right lateral skin erika and surgical drains have been removed. There is a right hip total arthroplasty which appears satisfactory. There are degenerative changes of the left hip with joint space narrowing and osteophytes. There is no lytic or blastic lesion. Surgical clips are present in the pelvis from previous tubal ligation. IMPRESSION: 1. Satisfactory postoperative appearance of the right hip. 2. Moderate degenerative changes of the left hip. 3. Prior tubal ligation. RPTAT: QQ .Ghassan Solis MD, MD Date Time Electronically viewed and signed by .Ghassan Solis MD, on 02/02/2017 13:45 .R/
== END | disposition home or self-care (01) ==
LOC: HKI 10:01
DX: Z09 Encounter for follow-up examination after completed treatment for conditions other than malignant neoplasm (principal); Z96.641 Presence of right artificial hip joint
CPT/HCPCS: 73502

== ENCOUNTER → 2017-09-08 | Outpatient (CLI) | END | disposition home or self-care (01) ==

== ENCOUNTER → 2017-11-20 | Outpatient (CLI) | END | disposition home or self-care (01) ==